=== PATIENT | female | born 1935 | race African-American/Black ===

== ENCOUNTER 2016-09-24 14:00 | Outpatient (RCR) | payer MEDICARE, OTHER ==
[~2016-09-24 14:00] MED LIST: ATENOLOL25 MG ORAL; ATIVAN1 MG ORAL; ATROVENT HFA12.9 GM IH; BACLOFEN10 MG ORAL; COGENTIN1 MG ORAL; D5W 50ML50 ML IV; DIGOXIN125 MCG ORAL; FLUOXETINE HCL10 MG ORAL; GABAPENTIN100 MG ORAL; HYDROCODON-ACE1 EA13 ORAL; KEPPRA1000 MG ORAL; KEPPRA500 M4 ORAL; KEPPRA500 MG ORAL; MELOXICAM7.5 MG PO; NORCO 10/3251 EA ORAL; PRADAXA150 MG ORAL; PRILOSEC40 MG ORAL; PROAIR HFA8.5 GM INH; PROLIXIN10 MG ORAL; PROTONIX40 MG ORAL; PROZAC10 MG ORAL; QUETIAPINE FUMA25 MG ORAL; RESTORIL15 MG ORAL; RESTORIL7.5 MG ORAL; RISPERDAL2 MG ORAL; SINGULAIR10 MG ORAL; TEMAZEPAM15 MG ORAL; TEMAZEPAM30 MG ORAL; XARELTO10 MG ORAL
== END 2016-10-08 | disposition home or self-care (01) ==
LOC: PTY 14:00
DX: M54.5 Low back pain (principal); R53.1 Weakness; Z96.641 Presence of right artificial hip joint
CPT/HCPCS: 97110; 97163; G8978; G8979

== ENCOUNTER 2016-10-09 10:15 | Outpatient (RCR) | payer MEDICARE, OTHER | END 2016-11-05 | disposition home or self-care (01) | LOC: PTY 10:15 | DX: M54.5 Low back pain (principal); R53.1 Weakness; Z96.641 Presence of right artificial hip joint ==

== ENCOUNTER 2016-11-22 14:00 | Outpatient (RCR) | payer MEDICARE, OTHER | END 2016-12-06 | disposition home or self-care (01) | LOC: PTY 14:00 | DX: M54.5 Low back pain (principal); R53.1 Weakness; Z96.641 Presence of right artificial hip joint | CPT/HCPCS: 97110; G8978; G8979 ==

== ENCOUNTER 2016-12-13 13:27 | Outpatient (RCR) | payer MEDICARE, OTHER | END 2017-01-05 | disposition home or self-care (01) | LOC: PTY 13:27 | DX: Z96.641 Presence of right artificial hip joint (principal) | CPT/HCPCS: 97110; G8979; G8980 ==

== ENCOUNTER 2017-05-06 12:57 | Outpatient (RCR) | payer MEDICARE, OTHER | END 2017-05-08 | disposition home or self-care (01) | LOC: PTY 12:57 | DX: G44.209 Tension-type headache, unspecified, not intractable (principal); M54.2 Cervicalgia; Z96.649 Presence of unspecified artificial hip joint; R53.1 Weakness | CPT/HCPCS: 97110; 97140; 97162; G8981; G8982 ==

== ENCOUNTER 2017-05-29 13:45 | Outpatient (RCR) | payer MEDICARE, OTHER | END 2017-06-07 | disposition home or self-care (01) | LOC: PTY 13:45 | DX: Z96.641 Presence of right artificial hip joint (principal); R26.2 Difficulty in walking, not elsewhere classified; M54.5 Low back pain; M62.81 Muscle weakness (generalized); M54.40 Lumbago with sciatica, unspecified side; G44.209 Tension-type headache, unspecified, not intractable ==

== ENCOUNTER → 2017-07-08 | Outpatient (RCR) | payer MEDICARE, OTHER | END | disposition home or self-care (01) | LOC: PTY 06-12 14:42 | DX: G44.209 Tension-type headache, unspecified, not intractable (principal); Z96.641 Presence of right artificial hip joint ==

== ENCOUNTER 2017-08-06 10:00 | Outpatient (RCR) | payer MEDICARE, OTHER | END 2017-08-07 | disposition home or self-care (01) | LOC: PTY 10:00 | DX: M54.2 Cervicalgia (principal); Z95.0 Presence of cardiac pacemaker; G44.209 Tension-type headache, unspecified, not intractable | CPT/HCPCS: 97110; 97140; G8982; G8983 ==